=== PATIENT | female | born 1955 | race Caucasian/White ===

== ENCOUNTER → 2017-03-22 | Outpatient (CLI) | payer OTHER ==
[~2017-03-22] MED LIST: ATENOLOL PO; GLUCOSAMINE & C1 CA2 PO; LAC15L PO; LINZESS145 MC1 PO; LOP600 PO; MULTI-VITAMINS1 TAB PO; VIT B12; VITAMIN D PO; XANAX PO
== END | disposition home or self-care (01) ==
LOC: MA 10:00
PROC: BH02ZZZ Plain Radiography of Bilateral Breasts (ICD-10-PCS; principal; 2017-03-22)
DX: Z12.39 Encounter for other screening for malignant neoplasm of breast (principal)
CPT/HCPCS: G0202

== ENCOUNTER → 2017-04-25 | Outpatient (CLI) | payer OTHER | END | disposition home or self-care (01) | LOC: US 04-23 13:30 → MA 12:46 | PROC: BH41ZZZ Ultrasonography of Left Breast (ICD-10-PCS; principal; 2017-04-25) | PROC: BH01ZZZ Plain Radiography of Left Breast (ICD-10-PCS; 2017-04-25) | DX: R92.2 Inconclusive mammogram (principal) | CPT/HCPCS: 76641; G0206 ==

== ENCOUNTER → 2017-10-04 | Outpatient (CLI) | payer OTHER | END | disposition home or self-care (01) | LOC: CT 08:48 | PROC: BW211ZZ Computerized Tomography (CT Scan) of Abdomen and Pelvis using Low Osmolar Contrast (ICD-10-PCS; principal; 2017-10-04) | DX: R10.9 Unspecified abdominal pain (principal) | CPT/HCPCS: Q9967 ==

== ENCOUNTER → 2017-11-11 | Outpatient (CLI) | payer OTHER | END | disposition home or self-care (01) | LOC: US 11-08 11:00 | PROC: BH41ZZZ Ultrasonography of Left Breast (ICD-10-PCS; principal; 2017-11-11) | DX: R92.8 Other abnormal and inconclusive findings on diagnostic imaging of breast (principal) | CPT/HCPCS: 76641 ==